=== PATIENT | male | born 1940 | race Hispanic/Latino ===

== ENCOUNTER 2018-02-09 09:43 | Outpatient (CLI) | payer MEDICARE ==
--- NOTE | 2018-02-09 11:27 | Cat Scan Report ---
FINAL REPORT EXAM: CT ABDOMEN PELVIS WO CON HISTORY: URINARY TRACT INFECTION TECHNIQUE: CT of the abdomen and pelvis without IV contrast. Coronal and sagittal reconstructed imaging provided. PRIORS: None currently available. FINDINGS: ABDOMEN: Small hiatal hernia. Stomach is otherwise unremarkable. Pancreatic calcifications may be related to chronic pancreatitis. No CT evidence for acute pancreatitis. No distinct lesions. Liver, gallbladder, spleen, and adrenals are unremarkable. Kidneys: No hydronephrosis. No nephroureteral stones. Infrarenal abdominal aortic aneurysm measures 5.4 x 4.2 cm. Uyek-ie-klgnhxtx aortic atherosclerotic disease. Right common iliac measures 1.9 cm. Left common iliac measures 1.5 cm. IVC is unremarkable. No periaortic or retroperitoneal mass or adenopathy. Itcm-yk-[id number] stool in the colon. Sigmoid diverticulosis. No wall thickening or inflammatory changes. Terminal ilium is unremarkable. Appendix is normal. Small bowel loops are unremarkable. No obstructive pattern. No air-fluid levels. No free air. No free fluid. Mesentery is unremarkable PELVIS: Large stone in the bladder measures 2.3 x 3.1 cm. Mild diffuse bladder wall thickening. Enlarged heterogeneous prostate. No pelvic mass or adenopathy. Fat containing bilateral inguinal hernias. No strangulation. Yvgh-gm-tsenoavh atherosclerotic disease at the pelvic vessels. Bones: No suspicious osseous lesions on this limited examination of the skeleton. Metastatic disease better evaluated with bone scan. Degenerative changes are in the spine. Straightening of the normal lordotic alignment. IMPRESSION: Large bladder stone. Bladder wall thickening. Suspect cystitis. For further evaluation with cystoscopy may be helpful if clinically indicated. Unremarkable noncontrast images of the kidneys. Small hiatal hernia. Infrarenal abdominal aortic aneurysm. Ectasia of both common iliacs. Enlarged heterogeneous prostate. Correlation with PSA may be helpful if clinically indicated.
== END 2018-02-09 09:44 | disposition home or self-care (01) ==
LOC: CT 09:43
PROVIDERS: ATTEND Urology
DX: N21.0 Calculus in bladder (principal); N39.0 Urinary tract infection, site not specified; K44.9 Diaphragmatic hernia without obstruction or gangrene; K57.30 Diverticulosis of large intestine without perforation or abscess without bleeding; N40.0 Benign prostatic hyperplasia without lower urinary tract symptoms; K40.90 Unilateral inguinal hernia, without obstruction or gangrene, not specified as recurrent; K86.89 Other specified diseases of pancreas; I70.0 Atherosclerosis of aorta
CPT/HCPCS: 74176; Q9967